=== PATIENT | male | born 1960 | race Caucasian/White ===

== ENCOUNTER 2024-11-12 21:49 | Outpatient (REF) | payer BC, SELFPAY | END 2024-11-12 21:50 | disposition home or self-care (01) | LOC: LBN 21:49 | PROVIDERS: Visit Provider Physician Assistant Medical | DX: L02.612 Cutaneous abscess of left foot (principal); B95.61 Methicillin susceptible Staphylococcus aureus infection as the cause of diseases classified elsewhere | CPT/HCPCS: 87077; 87070; 87186; 87205 ==

== ENCOUNTER 2025-06-14 07:38 | Outpatient (CLI) | payer BC, SELFPAY ==
--- NOTE | 2025-06-14 06:00 | DI.RAD_ITS ---
Exam(s) XR PAIN CLINIC SACRIOILIAC 2V EXAM: XR PAIN CLINIC SACRIOILIAC 2V CLINICAL HISTORY: Dx: Sacroiliac Joint Dysfunction. TECHNIQUE: Fluoroscopy was provided for the referring physician for guidance with performing pain clinic injection procedure. COMPARISON: No exams were available for comparison FINDINGS: Please see procedure note for details. Fluoro time: 41.7 seconds RADIATION DOSE DELIVERED: Ka,r=11.3 mGy
[2025-06-14 06:42] VITALS: BP 124/68; PULSE 73; RESP 18; TEMP 37.1; O2SAT 100
--- NOTE | 2025-06-14 08:07 | PDOC.PAIN ---
Date of service: 06/14/25 Time of Service: 08:30 Pain Managment Procedure Note Procedure Note Procedure Note: ?Sacroiliac Joint Steroid Injection ? Location: Bilateral SI Joints? Pre-procedure Diagnosis: Sacroiliitis, not elsewhere classified - M46.1 ? Post-procedure Diagnosis:? The same as above ? Sedation:? NONE ? Medication: Depo-Medrol 40 mg, bupivacaine 0.5% 1 mL, Omnipaque 0.25 mL per joint ? Estimated blood loss:? less than 2 cc ? Surgeon:? Connor Acosta MD ? COMMENT: THIS WILL BE BOTH DIAGNOSTIC AND THERAPEUTIC ? Procedure Detail:? The procedure and potential risks were explained to the patient and informed written consent was obtained. The patient was escorted to the procedure room and placed in the prone position. Pillows were utilized for proper positioning and comfort. Time out was performed in the procedure room with nursing staff confirming the patient's identity, procedure to be performed, allergies, and any blood thinning or anti-platelet medications. The patient's lumbosacral area was prepped with ChloraPrep and draped in a sterile fashion. Sterile technique was maintained throughout the procedure.? Sterile gloves were used, a face mask was worn, and new single dose vials of all medications were used with the top being swabbed with alcohol and given time to dry prior to withdrawal of medication. Lidocaine 1% was used to anesthetize the skin. With fluoroscopic guidance, a 22-gauge 3.5 spinal needle was advanced into the posteroinferior aspect of the Bilateral SI joint. Confirmation of intra-articular position of the needle tip was obtained with injection of 0.25cc of Omnipaque 240 contrast which showed appropriate spread [within the joint].? Following negative aspiration, 40mg of methylprednisolone mixed with 1 mL of bupivacaine 0.5% was injected.? The needle was gently removed. ?The patient tolerated the procedure well and was discharged home with instructions.? Permanent images saved and recorded. Plan:? Follow up prn. PAIN PRE PROCEDURE 5/10 POST PROCEDURE 0/10 COMMENT: 100 % BETTER AFTER INJECTION. Patient pending MRI lumbar spine for other issues Coding Conscious Sedation used for procedure: No CPT Codes: SI Joint Inj; incl Fluoro * BILATERAL* - [id number] ([id number]) 50 - BILATERAL PROCEDURE Additional Codes: Date of Service () Diagnoses: Sacroiliitis, not elsewhere classified - M46.1
[2025-06-14 08:11] VITALS: PULSE 69; O2SAT 95
[2025-06-14 08:20] VITALS: PULSE 68; O2SAT 96
[2025-06-14] MEDS: Nerve Block Tray 1 EACH MC (08:31)
[2025-06-14] MEDS: Bupivacaine 0.5% Pres-Free 10 ML VIAL 2 ML IJ (08:32)
[2025-06-14] MEDS: Omnipaque 240 MG/ML 50 ML BTL IJ (08:32)
[2025-06-14] MEDS: methylPREDNISolone ACETATE 80 MG/ML VIAL IJ (08:32)
== END 2025-06-14 07:39 | disposition home or self-care (01) ==
LOC: PC 07:38
PROVIDERS: PCP Family Medicine; Visit Provider Anesthesiology Pain Medicine
DX: M46.1 Sacroiliitis, not elsewhere classified (principal)
CPT/HCPCS: 27096; 72200; J0665; J1010; Q9967

== ENCOUNTER 2025-06-18 13:47 | Emergency (ER) | payer BC, SELFPAY ==
[2025-06-18 13:52] VITALS: BP 172/76; PULSE 98; RESP 16; TEMP 36.9; O2SAT 96
[2025-06-18 15:35] VITALS: BP 185/83; PULSE 93; O2SAT 96
--- NOTE | 2025-06-18 17:34 | DI.CT_ITS ---
Exam(s) CT LUMBAR SPINE WO EXAM: CT LUMBAR SPINE WO CLINICAL HISTORY: SI injections 4 days ago, worsening pain. TECHNIQUE: Imaging Protocol: Axial computed tomography images with coronal and sagittal reformatted images were created and reviewed COMPARISON: No exams were available for comparison FINDINGS: Bones: The last intervertebral disc space is designated the L5/S1 level for the numbering purpose of this examination. The vertebral body heights are well maintained. Alignment is satisfactory. No fracture is seen. T12-L1: No disc herniations or bulges are present. L1-2: No disc herniations or bulges are present. L2-3: No disc herniations or bulges are present. L3-4: Mild disc bulging. Mild facet degenerative changes and ligamentous hypertrophy. Mild central canal stenosis and mild bilateral neural foraminal narrowing. L4-5: Posterior fusion hardware. Laminectomy. Fusion across the disc space. L5-S1: No disc herniations or bulges are present. The visualized SI joints and sacrum are well maintained. The sacroiliac joints show mild degenerative changes. There are no areas of bony destruction or visible fluid collections. Soft Tissues: The paraspinal soft tissues are unremarkable. Scattered diverticulosis noted. 1.4 cm calculus in the left renal pelvis without hydronephrosis. There is some stranding around the renal pelvis which could indicate inflammation. Cyst noted at the upper pole of the left kidney. Other smaller stones are noted bilaterally. Bilateral iliac artery stents. IMPRESSION: No abnormality seen involving the sacroiliac joints. Postsurgical changes at the L4-5 level. Degenerative changes cause mild central canal stenosis and neural foraminal narrowing at L3-4. Large stone in the left renal pelvis with surrounding stranding could be secondary to chronic irritation/intermittent obstruction. No current hydronephrosis. The preliminary [facility] report was reviewed. RADIATION DOSE DELIVERED: Total DLP DATA REPOSITORY: All CT scans at this facility are submitted to the National Radiology Data Registry (NRDR) Dose Index Registry (DIR) with the [employer] ([employer]). RADIATION OPTIMIZATION: All CT scans at this facility use at least one of these dose optimization techniques: automated exposure control; mA and/or kV adjustment per patient size (includes targeted exams where dose is matched to clinical indication); or iterative reconstruction.
--- NOTE | 2025-06-18 17:50 | W.ED.GENAD ---
Discharge Plan Disposition Patient Disposition: Home Condition: Stable Discharge Details Clinical Impression: Sacroiliac joint dysfunction of both sides, Kidney stone on left side Primary Care Provider: Gustavo Macedo ED Provider: Ngoc Hale Home Meds and New Rx's Prescriptions: New hydromorphone [Dilaudid] 2 mg tablet 2 mg PO Q6H PRNQty: 7 0RF No Action nicotine 14 mg/24 hr patch 24 hour 1 patch transdermal DAILY nifedipine 90 mg tablet extended release 90 mg PO DAILY losartan-hydrochlorothiazide 100-25 mg tablet 1 tab PO DAILY nicotine 7 mg/24 hr patch 24 hour 1 patch transdermal Q24H verapamil 120 mg capsule,ext rel. pellets 24 hr 120 mg PO DAILY cyclobenzaprine 5 mg tablet 5 mg PO QHS PRN rosuvastatin 20 mg tablet 20 mg PO DAILY tadalafil [Cialis] 10 mg tablet 10 mg PO DAILY PRN Patient Comments: prn Rx Instructions: administer approximately 30min before sexual activity; do not use more than 1 dose per 24hrs pantoprazole 40 mg tablet,delayed release (DR/EC) 40 mg PO BID aspirin 81 mg tablet 81 mg PO DAILY tramadol 50 mg tablet 50 mg PO Q8H Patient Comments: TAKE ONE TABLET BY MOUTH EVERY 8 HOURS NEEDED FOR PAIN MAXIMUM DAILY DOSE = 3 Discharge Instructions Instructions: Low Back Pain ED Additional Instructions: You were seen in the emergency department today for evaluation of worsening low back pain after your recent SI joint injection. In our department a full physical examination performed, had a CT scan that did not show any evidence of hematoma, infection, or other new findings, though you do have degenerative changes in that region. You also were incidentally noted to have kidney stones, specifically on the left side, for which you need to reach out to your urologist. There was no evidence of severe obstruction at this time or infection in your urine. You received medications for management of your pain, I have sent you home with a short course of Dilaudid to get you through this weekend. Ultimately your pain management team needs to be the one to continue to prescribe any additional pain medications. I recommend that you take Tylenol, 1000 mg every 6 hours, and use Lidoderm patches which you can purchase [id number]. Your proof coins inspector will have to clear you for use of any NSAID ointments such as Voltaren gel. Please follow-up with your primary care provider in the next few days to discuss this visit and any symptoms that change, worsen, or persist. Thank you for allowing us to be part of your care. HPI General Mode of arrival: ambulatory. Date/Time Provider Initiated Documentation: 06/18/25 13:59. Limitations to Documentation: no limitations. Information obtained by: patient, family and old records reviewed. HPI Narrative: This is a 65-year-old male patient with a past medical history significant for bilateral SI joint dysfunction, L4/L5 spinal stenosis, peripheral vascular disease, hypertension, CKD, and renal stones, presenting for evaluation of worsening lower back pain. The patient had an SI joint steroid injection on Friday, states that his pain has worsened significantly since that procedure. He states that the pain radiates across the bilateral lower back, sometimes radiates into his left buttock. The patient states that he has had numerous trials of medications that have not been effective. He has failed courses of muscle relaxers, tramadol, and cannot take NSAIDs due to his CKD. He reports that he is not experiencing any new numbness or tingling, denies saddle anesthesia, bowel or bladder incontinence, fever or chills. Related Data Home Medications ?Medication ?Instructions ?Recorded ?Confirmed cyclobenzaprine 5 mg tablet 5 mg PO QHS PRN 05/26/25 06/18/25 losartan 100 1 tab PO DAILY 05/26/25 06/18/25 mg-hydrochlorothiazide 25 mg tablet nicotine 14 mg/24 hr daily 1 patch transdermal DAILY 05/26/25 06/18/25 transdermal patch nicotine 7 mg/24 hr daily 1 patch transdermal Q24H 05/26/25 06/18/25 transdermal patch nifedipine 90 mg tablet,extended 90 mg PO DAILY 05/26/25 06/18/25 release rosuvastatin 20 mg tablet 20 mg PO DAILY 05/26/25 06/18/25 tadalafil 10 mg tablet (Cialis) 10 mg PO DAILY PRN 05/26/25 06/18/25 verapamil 120 mg 24 hr 120 mg PO DAILY 05/26/25 06/18/25 capsule,extended release aspirin 81 mg tablet 81 mg PO DAILY 05/31/25 06/18/25 pantoprazole 40 mg tablet,delayed 40 mg PO BID 05/31/25 06/18/25 release hydromorphone 2 mg tablet 2 mg PO Q6H PRN #7 tabs 06/18/25 (Dilaudid) tramadol 50 mg tablet 50 mg PO Q8H 06/18/25 06/18/25 Previous Rx's ?Medication ?Instructions ?Recorded hydromorphone 2 mg tablet 2 mg PO Q6H PRN #7 tabs 06/18/25 (Dilaudid) Allergies Allergy/AdvReac Type Severity Reaction Status Date / Time No Known Allergies Allergy Unverified 06/18/25 13:55 General Stated Complaint: Orthopedic LORIE: 4 Exam Narrative Exam Narrative: Gen: Awake and alert, in no apparent distress HEENT: Non-icteric sclera Neck: Supple Lungs: No apparent respiratory distress, normal respiratory effort. CV: Appears well perfused, heart with regular rate and rhythm, strong distal pulses Abdomen: Non-distended, soft, nontender MSK: Moves 4 extremities without apparent limitation in ROM. The patient has tenderness to palpation over the bilateral SI joints, there are 2 well-healing injection aguilera with no evidence of surrounding redness, induration, or fluctuance. Skin: Visualized skin without rashes, cyanosis. Neuro: Normal Gait, no obvious focal deficits or facial asymmetry. 5 out of 5 strength bilateral lower extremities, no sensory deficits. Speaks in full, clear sentences. Psych: Appropriate for situation. Course Vital Signs Vital signs: Vital Signs Temperature 36.9 C 06/18/25 13:52 Pulse 98 H 06/18/25 13:52 Respiratory Rate 16 06/18/25 13:52 Blood Pressure 172/76 H 06/18/25 13:52 Pulse Oximetry 96 06/18/25 13:52 Temperature 36.9 C 06/18/25 13:52 Temperature Source Oral 06/18/25 13:52 Pulse 93 H 06/18/25 15:35 Respiratory Rate 16 06/18/25 13:52 Blood Pressure 185/83 H 06/18/25 15:35 Blood Pressure Mean 117 06/18/25 15:35 Pulse Oximetry 96 06/18/25 15:35 Oxygen Delivery Method Room Air 06/18/25 15:35 Oxygen Flow Rate 0 06/18/25 15:35 Pain Level 8 06/18/25 13:52 Comment says he lives at a 5/10 for pain 06/18/25 13:52 Medical Decision Making This is a 65-year-old male patient presenting for evaluation of acute on chronic worsening of his lower back pain. Differential includes but is not limited to SI joint dysfunction, certainly considered sequelae of his recent injection including hematoma, abscess, patient is reassuringly without external skin changes or systemic evidence of infection such as fever or tachycardia. No trauma to suggest fracture or dislocation. Considered renal stone given the patient's known history of same, no history of aortic pathology or abdominal tenderness to significantly increase my concern for aneurysm or dissection, and the patient is reassuringly without neurodeficits to increase my concern for spinal cord compression syndrome such as cauda equina, epidural abscess, epidural hematoma. Given the recent procedure we will obtain a CT of the lumbar spine, and obtain basic labs to include CBC, CMP, magnesium, and urinalysis. I will provide the patient with a Lidoderm patch, Tylenol, and Dilaudid for initial management of pain. -I independently interpreted the laboratory studies, which show no significant leukocytosis, anemia, or thrombocytopenia. The chemistry panel is without evidence of electrolyte abnormality, baseline kidney dysfunction assumed given patient reported history though there are no priors in our system available to compare to, no evidence of liver injury. Urinalysis with large blood but no infectious findings. CT scan reviewed by myself, does show a left-sided renal stone without hydronephrosis suggesting active obstruction. Radiology notes no evidence of hematoma or abscess or other acute concerning changes. He does have degenerative changes, some stranding around the kidney though in the absence of infectious findings on the urinalysis I have a low concern for pyelonephritis. The patient had improvement in his pain with the above-noted medication regimen, I will provide him with a prescription for oral Dilaudid to get him through the weekend, he will see his pain management team on Friday. I counseled him to reach out to his proof coins inspector to discuss his kidney stone and whether topical NSAIDs would be appropriate given his kidney condition. Additionally, I recommended [id number] dosing of Tylenol and Lidoderm patches to be purchased [id number]. At this time, the patient has had a full medical evaluation and is safe for discharge to home. They are hemodynamically stable, ambulatory, and tolerating PO. They are understanding of the follow-up plan and return precautions. They left our facility without incident. Ngoc Hale MD [facility] All Active Problems (Updated 06/18/25 @ 20:53 by Ngoc Hale MD) Kidney stone on left side (Acute) Sacroiliac joint dysfunction of both sides (Acute) Mechanical low back pain (Acute) Lumbar spondylosis (Acute) Postlaminectomy syndrome of lumbar region (Acute) Medical History Liver mass Chronic bilateral low back pain with bilateral sciatica GERD (gastroesophageal reflux disease) Primary osteoarthritis, right shoulder Spinal stenosis at L4-L5 level Atherosclerosis of douglas artery of both lower extremities with intermittent claudication PVD (peripheral vascular disease) Tobacco abuse Pain in right knee Other chronic pain Nephrolithiasis Mixed hyperlipidemia Insomnia HNP (herniated nucleus pulposus), lumbar Essential hypertension with goal blood pressure less than 130/80 Pain in left ankle and joints of left foot Nocturnal leg cramps Prediabetes Abscess of left foot CKD stage G3b/A3, GFR 30-44 and albumin creatinine ratio >300 mg/g Spondylolisthesis at L4-L5 level AV malformation of gastrointestinal tract Normocytic anemia Surgical History S/P right rotator cuff repair Social History Smoking/Tobacco Use Status: Former Tobacco Use Smoking risk assessment performed?: Yes Alcohol Intake: never Substance use type: does not use Do you feel safe at home: Yes Do you feel safe in your relationship?: Yes
[2025-06-18 18:32] LABS: Abs Immature Grans 0.04 10^3/uL (0.0-0.06); HCT 32.5 % (40.0-50.0); HGB 10.6 g/dL (13.5-17.5); Immature Grans % 0.4 %; MCH 27.8 pg (27.0-33.0); MCHC 32.6 % (32.0-36.0); MCV 85 fL (80-95); MPV 8.8 fL (8.0-11.0); Platelet Count 381 10^3/uL (130-400); RBC 3.81 10^6/uL (4.36-5.78); RDW 13.2 % (11.8-14.1); RDW-SD 40.9 fL; WBC 10.33 10^3/uL (4.4-10.8)
[2025-06-18] MEDS: ACETAMINOPHEN 1,000 MG/100 ML BAG 400 MG IVPB (18:36)
[2025-06-18] MEDS: HYDROmorphone 2 MG/ML SYR 0.5 MG IVP ×2 (18:36→19:38)
[2025-06-18] MEDS: Lidocaine 5% Patch 1 PATCH TP (18:36)
[2025-06-18 18:47] VITALS: BP 169/73; PULSE 85; RESP 18; O2SAT 95
[2025-06-18 18:49] LABS: ALT 21 U/L (16-63); AST 14 U/L (15-37); Albumin 3.9 g/dL (3.4-5.0); Alkaline Phosphatase 98 U/L (46-116); Anion Gap 12.4 mmol/L (3-11); BUN 27 mg/dL (7-18); Bilirubin, Total 0.3 mg/dL (0.2-1.0); CO2 25.6 mmol/L (21.0-32.0); Calcium 8.3 mg/dL (8.5-10.1); Chloride 103 mmol/L (98-107); Estimated GFR 51.99 (mL/min/1.73m2); Glucose 100 mg/dL (74-106); Magnesium 2.2 mg/dL (1.8-2.4); Potassium 3.5 mmol/L (3.5-5.1); Sodium 141 mmol/L (136-145); Total Protein 7.6 g/dL (6.4-8.2)
[2025-06-18 18:51] LABS: C & S Indicated? No; Glucose Negative (Negative); RBC 20-50 HPF (0-2); WBC Negative HPF (0-5)
--- NOTE | 2025-06-18 19:20 | DI.[facility]_ITS ---
PROCEDURE INFORMATION: Exam: CT Lumbar Spine Without Contrast Exam date and time: 06/18/2025 6:53 PM Age: 65 years old Clinical indication: Low back pain; Additional info: Si injections 4 days ago, worsening pain TECHNIQUE: Imaging protocol: Computed tomography of the lumbar spine without contrast. COMPARISON: No relevant prior studies available. FINDINGS: Bones/joints: Mild sclerosis is present at the bilateral sacroiliac joints. No ankylosis. No suspicious bony lesions. No cortical erosions or thinning. No periosteal reaction. Specifically, there is no abnormal fluid at the posterior aspect of the bilateral sacroiliac joints. Bones have a normal appearance. No acute fracture or suspicious bone lesion. Kidneys and ureters: A 1.4 cm calculus is present within the left renal pelvis. Some peripelvic fat stranding is noted. No left hydronephrosis. There are punctate bilateral nonobstructing renal calculi. No hydroureter or ureterolithiasis. Stomach and bowel: The bowel demonstrates overall normal caliber and wall thickness. There are scattered diverticular outpouchings throughout the colon. No mucosal thickening or pericolonic fat stranding. Vasculature: There are bilateral common iliac stents noted. Soft tissues: No abnormal soft tissue fluid collections. IMPRESSION: 1. Large calculus within the left renal pelvis with peripelvic fat stranding present. Although there is no current hydronephrosis. Findings raise the suspicion for intermittent ureteral obstruction. Additionally, fat stranding in this region may be associated with inflammatory or infectious etiologies. Please correlate with urinalysis. 2. Normal appearance of the bilateral sacroiliac joints. No findings to suggest abscess, cellulitis, or osteomyelitis. 3. Diverticulosis. No acute diverticulitis where visualized. Dictated and Authenticated by: Laura Cortes MD. Orderin [facility]. Johnny Grossman MD
[2025-06-18] MEDS: HYDROmorphone 2 MG TAB 6 MG PO (21:05)
[2025-06-18 21:09] VITALS: BP 148/64; PULSE 82; RESP 15; O2SAT 99
== END 2025-06-18 21:12 | disposition home or self-care (01) ==
PROVIDERS: Emergency Provider Emergency Medicine; PCP Family Medicine
DX: N20.0 Calculus of kidney (principal); M53.3 Sacrococcygeal disorders, not elsewhere classified
CPT/HCPCS: 99284 ×2; 96374; 96375; 96376; 80053; 72131; 81003; 81015; 83735; 85025; J0131; J1171

== ENCOUNTER 2025-06-20 13:54 | Emergency (ER) | payer BC, SELFPAY ==
[2025-06-20 13:56] VITALS: BP 183/72; PULSE 80; RESP 18; TEMP 36.9; O2SAT 97
[2025-06-20 15:36] VITALS: BP 155/83; PULSE 74; RESP 22; TEMP 36.6; O2SAT 99
--- NOTE | 2025-06-20 15:41 | W.ED.GENAD ---
Discharge Plan Disposition Patient Disposition: Home Condition: Stable Discharge Details Clinical Impression: Lumbar back pain Primary Care Provider: Gustavo Macedo ED Provider: Arslan Hodge Home Meds and New Rx's Prescriptions: Continued nicotine 14 mg/24 hr patch 24 hour 1 patch transdermal DAILY nifedipine 90 mg tablet extended release 90 mg PO DAILY losartan-hydrochlorothiazide 100-25 mg tablet 1 tab PO DAILY nicotine 7 mg/24 hr patch 24 hour 1 patch transdermal Q24H verapamil 120 mg capsule,ext rel. pellets 24 hr 120 mg PO DAILY cyclobenzaprine 5 mg tablet 5 mg PO QHS PRN rosuvastatin 20 mg tablet 20 mg PO DAILY tadalafil [Cialis] 10 mg tablet 10 mg PO DAILY PRN Patient Comments: prn Rx Instructions: administer approximately 30min before sexual activity; do not use more than 1 dose per 24hrs pantoprazole 40 mg tablet,delayed release (DR/EC) 40 mg PO BID aspirin 81 mg tablet 81 mg PO DAILY tramadol 50 mg tablet 50 mg PO Q8H Patient Comments: TAKE ONE TABLET BY MOUTH EVERY 8 HOURS NEEDED FOR PAIN MAXIMUM DAILY DOSE = 3 hydromorphone [Dilaudid] 2 mg tablet 2 mg PO Q6H PRNQty: 7 0RF Discharge Instructions Instructions: Hydromorphone, Low Back Pain ED Additional Instructions: You were seen in the emergency department for acute on chronic low back pain, you did have 18 hours worth of Dilaudid left and your appointment is tomorrow, we have provided you with a small amount of Dilaudid to go home, please return to the ER for any severe leg weakness, bowel or urinary changes, follow-up with your primary care provider for long-term pain relief. Referrals: Gustavo Macedo [Primary Care Provider] Discharge Data Discharge Date/Time-TO BE ENTERED AT DEPARTURE: 06/20/25 16:31 HPI General Date/Time Provider Initiated Documentation: 06/20/25 13:58. HPI Narrative: 65 year-old male presents to ED today by POV/ambulating with a chief complaint of acute on chronic back pain, followed by his PCP and Pain Clinic with history of spinal fusion- considering possible revision surgery in the near future, having worsening pain after receiving SI injections at pain clinic last - here requesting two tabs of Dilaudid to make it to his long-term provider as he doesn't have enough to make it to his appointment with PCP tomorrow. Quality described as same pain he has been dealing with since the SI injections, no new trauma, no radiation to numbness/weakness of legs, urinary/bowel changes. Severity is described as severe. Palliating factors include Dilaudid is making his pain tolerable. Provoking factors include nothing specific. Patient not anticoagulated. Related Data Home Medications ?Medication ?Instructions ?Recorded ?Confirmed cyclobenzaprine 5 mg tablet 5 mg PO QHS PRN 05/26/25 06/20/25 losartan 100 1 tab PO DAILY 05/26/25 06/20/25 mg-hydrochlorothiazide 25 mg tablet nicotine 14 mg/24 hr daily 1 patch transdermal DAILY 05/26/25 06/20/25 transdermal patch nicotine 7 mg/24 hr daily 1 patch transdermal Q24H 05/26/25 06/20/25 transdermal patch nifedipine 90 mg tablet,extended 90 mg PO DAILY 05/26/25 06/20/25 release rosuvastatin 20 mg tablet 20 mg PO DAILY 05/26/25 06/20/25 tadalafil 10 mg tablet (Cialis) 10 mg PO DAILY PRN 05/26/25 06/20/25 verapamil 120 mg 24 hr 120 mg PO DAILY 05/26/25 06/20/25 capsule,extended release aspirin 81 mg tablet 81 mg PO DAILY 05/31/25 06/20/25 pantoprazole 40 mg tablet,delayed 40 mg PO BID 05/31/25 06/20/25 release hydromorphone 2 mg tablet 2 mg PO Q6H PRN #7 tabs 06/18/25 06/20/25 (Dilaudid) tramadol 50 mg tablet 50 mg PO Q8H 06/18/25 06/20/25 Previous Rx's ?Medication ?Instructions ?Recorded hydromorphone 2 mg tablet 2 mg PO Q6H PRN #7 tabs 06/18/25 (Dilaudid) Allergies Allergy/AdvReac Type Severity Reaction Status Date / Time No Known Allergies Allergy Unverified 06/20/25 14:00 General Stated Complaint: Orthopedic LORIE: 3 Review of Systems All systems reviewed & are unremarkable except as noted in HPI and below Exam Narrative Exam Narrative: GENERAL APPEARANCE: Well-nourished, non-toxic, awake and alert, atraumatic, no acute distress. SKIN: Warm, pink, dry, intact, without rashes/lesions/ulcerations. HEAD: Normocephalic, atraumatic, normal hair distribution for gender/age. EYES: Normal conjunctiva, no exudates on lids/lashes. ENT: Nares patent, no circumoral cyanosis, no facial swelling NECK: Supple, trachea midline, painless cervical ROM. LUNGS/CHEST: Non-labored respirations, normal A/P diameter, symmetrical expansion, no chest wall deformity HEART (CV/PV): No peripheral edema, no JVD. ABDOMEN: Soft, non-distended, no guarding. MSK: Normal ROM, no swelling/deformity to bilateral UEs or LEs, moving all extremities without weakness, no cyanosis, spine midline with diffuse lumbar tenderness, normal curvature. NEURO: Mental Status AAOx4 - alert to person, place, time, events No facial droop, no forehead involvement. Motor: No focal weakness - strength 5/5 in bilateral UEs and LEs, proximal and distal, symmetric. Sensory: sensation intact to light touch globally. Gait normal: patient ambulated without ataxia into ED room. PSYCH: euthymic, cooperative, pleasant, appropriate speech Course Vital Signs Vital signs: Vital Signs Temperature 36.9 C 06/20/25 13:56 Pulse 80 06/20/25 13:56 Respiratory Rate 18 06/20/25 13:56 Blood Pressure 183/72 H 06/20/25 13:56 Pulse Oximetry 97 06/20/25 13:56 Temperature 36.6 C 06/20/25 15:36 Temperature Source Temporal Artery Scan 06/20/25 15:36 Pulse 74 06/20/25 15:36 Respiratory Rate 22 06/20/25 15:36 Blood Pressure 155/83 H 06/20/25 15:36 Blood Pressure Mean 107 06/20/25 15:36 Pulse Oximetry 99 06/20/25 15:36 Oxygen Delivery Method Room Air 06/20/25 15:36 Oxygen Flow Rate 0 06/20/25 15:36 Pain Level 5 06/20/25 13:56 Medical Decision Making This dictation utilizes [id number] dictation software and may contain unedited grammatical errors. 65 year-old male presents to ED today by POV/ambulating with a chief complaint of acute on chronic back pain, followed by his PCP and Pain Clinic with history of spinal fusion- considering possible revision surgery in the near future, having worsening pain after receiving SI injections at pain clinic last Weds- here requesting two tabs of Dilaudid to make it to his long-term provider as he doesn't have enough to make it to his appointment with PCP tomorrow. Quality described as same pain he has been dealing with since the SI injections, no new trauma, no radiation to numbness/weakness of legs, urinary/bowel changes. Severity is described as severe. Palliating factors include Dilaudid is making his pain tolerable. Provoking factors include nothing specific. Patients' medical history: Complex surgical lumbar history, chronic bilateral sciatica, GERD, PVD, hypertension, CKD stage III. Family and social history: Noncontributory. Pertinent exam findings / vital signs include lumbar tenderness diffusely, strength 5/5 in bilat lower extrem. Differential / pathologies of concern include lumbar pain syndrome, not cauda equina. Diagnostic studies of: -None- no new trauma. Interventions of: -provided #2 tab of 2mg dilaudid. Patient had 3 tablets left taking q6HR, appointment tomorrow at PCP. unsure why PCP office referred to ER with no life/limb threat for more medication. ED Course/Assessment/Plan: 65-year-old male presents with acute on chronic back pain with laminectomy history worsened after SI joint injections last week. He has 18 hours worth of Dilaudid left but he is unsure what time his appointment is tomorrow again provide him with 2 tablets to make sure that he was covered for his pain until his appointment. He has had no new trauma and has no signs of cauda equina. Findings not consistent with cauda equina, NV compromise. Disposition of lumbar back pain. Patient verbalized understanding of the plan and return to ED criteria and engaged in shared decision making. Medical Records Medical records reviewed: Yes I reviewed the patient's medical records. PFSH All Active Problems (Updated 06/20/25 @ 15:59 by JL Benjamin) Lumbar back pain (Acute) Kidney stone on left side (Acute) Sacroiliac joint dysfunction of both sides (Acute) Mechanical low back pain (Acute) Lumbar spondylosis (Acute) Postlaminectomy syndrome of lumbar region (Acute) Medical History Liver mass Chronic bilateral low back pain with bilateral sciatica GERD (gastroesophageal reflux disease) Primary osteoarthritis, right shoulder Spinal stenosis at L4-L5 level Atherosclerosis of [place] artery of both lower extremities with intermittent claudication PVD (peripheral vascular disease) Tobacco abuse Pain in right knee Other chronic pain Nephrolithiasis Mixed hyperlipidemia Insomnia HNP (herniated nucleus pulposus), lumbar Essential hypertension with goal blood pressure less than 130/80 Pain in left ankle and joints of left foot Nocturnal leg cramps Prediabetes Abscess of left foot CKD stage G3b/A3, GFR 30-44 and albumin creatinine ratio >300 mg/g Spondylolisthesis at L4-L5 level AV malformation of gastrointestinal tract Normocytic anemia Surgical History S/P right rotator cuff repair Social History Smoking/Tobacco Use Status: Former Tobacco Use Smoking risk assessment performed?: Yes Alcohol Intake: never Substance use type: does not use Do you feel safe at home: Yes Do you feel safe in your relationship?: Yes
[2025-06-20] MEDS: HYDROmorphone 2 MG TAB 4 MG PO (16:19)
[2025-06-20 16:21] VITALS: BP 151/83; PULSE 99; RESP 22; O2SAT 97
== END 2025-06-20 16:31 | disposition home or self-care (01) ==
PROVIDERS: Emergency Provider Physician Assistant; PCP Family Medicine
DX: M54.50 Low back pain, unspecified (principal)
CPT/HCPCS: 99283 ×2

== ENCOUNTER 2025-08-16 07:09 | Outpatient (CLI) | payer BC, SELFPAY ==
[2025-08-16 07:19] VITALS: BP 154/76; PULSE 90; RESP 20; TEMP 37.1; O2SAT 98
[2025-08-16 07:50] VITALS: PULSE 88; O2SAT 96
[2025-08-16 08:00] VITALS: PULSE 87; O2SAT 95
--- NOTE | 2025-08-16 08:05 | PDOC.PAIN ---
Date of service: 08/16/25 Time of Service: 08:08 Pain Managment Procedure Note Procedure Note Procedure Note: Lumbar Medial Branch Block ? Location: Bilateral Medial Branches ? Levels: L4,5? ( L5-S1 FACET) ? Pre-procedure Diagnosis: M47.817 Spondylosis without myelopathy or radiculopathy, lumbosacral region M47.816 Spondylosis without myelopathy or radiculopathy, lumbar region ? Post-procedure Diagnosis:? The same as above ? Sedation: NONE? Estimated blood loss:? less than 2 ml ? Surgeon:? Connor Acosta MD COMMENT: Patient is fused at L4-L5. He appears to have mechanical pain below that level. He is ? Procedure Detail:? The procedure and potential risks were explained to the patient and informed written consent was obtained. The patient was escorted to the procedure room and placed in the prone position. Pillows were utilized for proper positioning and comfort.? Time out was performed in procedure room with nursing staff confirming the patient's identity, procedure to be performed, allergies, and any blood thinning or anti-platelet medications. The patient's lower back was prepped with chlorhexidine and draped in a sterile fashion. Sterile technique was maintained throughout the procedure.? Sterile gloves were used, a face mask was worn, and new single dose vials of all medications were used with the top being swabbed with alcohol and given time to dry prior to withdrawal of medication.? A left AND right-sided oblique fluoroscopic view was obtained, with visualization of the: ?RIGHT and LEFT L4 and DORSAL RAMUS L5 AT SACRAL ALA ? junction of the transverse process and superior articular process. Lidocaine 1% was used to anesthetize the skin. A 22-gauge Quincke needle was advanced along the superior margin of the transverse process and lateral to the articular process.? It was directed inferiorly and medially so that the tip struck the junction of the base of the transverse process and the superior articular process. The needle was then walked over the superior aspect of the transverse process and advanced slightly along the course of the L4,5 medial branch nerves. Proper placement was verified in A/P, oblique and lateral views under fluoroscopy. At this location, following negative aspiration, 0.5ml 0.5% bupivacaine was injected.? The patient tolerated the procedure well and was transported to the recovery area for observation and discharge instructions. Permanent images saved and recorded. Follow-up:? The patient will return in 2 weeks for confirmatory LMBBs if they? meet the criteria from today's procedure lasting for at least 2 hours.? COMMENT:Pain went from 6/10 to /10. Before the patient left patient had greater than 80% pain relief. Coding Conscious Sedation used for procedure: No CPT Codes: LMBB (includes Fluoro) Lumbar/Sacral, single lvl *BILATERAL* - [id number] ([id number]) Additional Codes: Date of Service () Diagnoses: M47.817 Spondylosis without myelopathy or radiculopathy, lumbosacral region M47.816 Spondylosis without myelopathy or radiculopathy, lumbar region
[2025-08-16] MEDS: Bupivacaine 0.5% Pres-Free 10 ML VIAL IJ (08:06)
[2025-08-16] MEDS: Nerve Block Tray 1 EACH MC (08:07)
--- NOTE | 2025-08-16 08:08 | DI.RAD_ITS ---
Exam(s) XR PAIN CLINIC LUMBAR SP 2V EXAM: XR PAIN CLINIC LUMBAR SP 2V CLINICAL HISTORY: DX: Lumbar Spondylosis TECHNIQUE: 2D and realtime digital imaging was performed. CONTRAST MATERIAL: Refer to procedure report. COMPARISON: No exams were available for comparison FINDINGS: Fluoroscopy was provided for Dr. Acosta during the performance of a bilateral lumbar medial branch block. Please refer to the procedure report for complete details. Ka,r=5.5 mGy IMPRESSION: RADIATION DOSE DELIVERED: 0.0 0.0 0
== END 2025-08-16 07:10 | disposition home or self-care (01) ==
LOC: PC 07:10
PROVIDERS: PCP Physician Assistant; Visit Provider Anesthesiology Pain Medicine
DX: M47.816 Spondylosis without myelopathy or radiculopathy, lumbar region (principal); M47.817 Spondylosis without myelopathy or radiculopathy, lumbosacral region
CPT/HCPCS: 64493; 72100; J0665

== ENCOUNTER 2025-08-18 11:28 | Outpatient (REF) | payer BC, SELFPAY ==
[2025-08-18 17:08] LABS: ALT 20 U/L (10-49); AST 19 U/L (<34); Albumin 4.4 g/dL (3.2-5.0); Alkaline Phosphatase 79 U/L (46-116); Anion Gap 9.5 mmol/L (3-11); BUN 33 mg/dL (9-23); Bilirubin, Total 0.2 mg/dL (0.2-1.2); CO2 20.5 mmol/L (20.0-31.0); Calcium 8.9 mg/dL (8.3-10.6); Chloride 115 mmol/L (98-107); Glucose 101 mg/dL (74-106); Potassium 3.8 mmol/L (3.5-5.1); Sodium 145 mmol/L (136-145); Total Protein 7.0 g/dL (5.7-8.2)
[2025-08-18 17:39] LABS: Abs Immature Grans 0.05 10^3/uL (0.0-0.06); HCT 35.4 % (40.0-50.0); HGB 11.4 g/dL (13.5-17.5); Immature Grans % 0.5 %; MCH 28.3 pg (27.0-33.0); MCHC 32.2 % (32.0-36.0); MCV 88 fL (80-95); MPV 9.6 fL (8.0-11.0); Platelet Count 374 10^3/uL (130-400); RBC 4.03 10^6/uL (4.36-5.78); RDW 15.1 % (11.8-14.1); RDW-SD 49.1 fL; WBC 9.22 10^3/uL (4.4-10.8)
== END 2025-08-18 11:29 | disposition home or self-care (01) ==
LOC: NCHCN 11:28
PROVIDERS: PCP Physician Assistant; Visit Provider Physician Assistant
DX: N18.32 Chronic kidney disease, stage 3b (principal)
CPT/HCPCS: 80053; 85025